=== PATIENT | male | born 1990 | race Caucasian/White ===

== ENCOUNTER 2018-03-24 09:31 | Emergency (ER) | payer SELFPAY ==
[~2018-03-24] VITALS: Ht 180.3 cm; Wt 87.0 kg
[2018-03-24 10:18] VITALS: BP 125/67
== END 2018-03-24 10:33 | disposition home or self-care (01) ==
LOC: ED 10:24
DX: F41.1 Generalized anxiety disorder (principal); F11.129 Opioid abuse with intoxication, unspecified; F17.200 Nicotine dependence, unspecified, uncomplicated
CPT/HCPCS: 93005; 99284